=== PATIENT | male | born 1990 | race Caucasian/White ===

== ENCOUNTER 2020-01-04 04:04 | Emergency (ER) | payer SELFPAY ==
[~2020-01-04] VITALS: Ht 170.2 cm; Wt 69.8 kg
[2020-01-04 04:17] VITALS: BP 129/88
--- NOTE | 2020-01-04 04:17 | PHYS DOC ---
General Adult EDM: Chief Complaint: HAND PROBLEM HPI: HPI: "..I was trying to move a Rototiller up into the back of a pickup... Yesterday... And I slipped and fell puncturing my right hand with a binding wire..." " I cleaned it up..but tonight it started hurting..and I don't remember my last tetanus..." Patient is a 29 year old male who presents with above hx and complaint of Rt palm pain at puncture site. Pt.received puncture during FOOSH type injury to Rt. palm. Injury at t 1900 hrs. yesterday. The patient has no Tinel sign. Site of puncture appears to be cleaned and has currently some antibiotic ointment at site. Distal neurovascular intact. Patient is right-hand dominant. Patient does not remember his last tetanus. No recent travel or specific ill contacts. Normally healthy. No history immunosuppression. Review of Systems: Review of Systems: Constitutional: Denies fever or chills Eyes: Denies change in visual acuity HENT: Denies nasal congestion or sore throat Respiratory: Denies cough or shortness of breath Cardiovascular: Denies chest pain or edema GI: Denies abdominal pain, nausea, vomiting, bloody stools or diarrhea : Denies dysuria Musculoskeletal: Denies back pain or joint pain. Complains of right palm Integument: Denies rash Neurologic: Denies headache, focal weakness or sensory changes Endocrine: Denies polyuria or polydipsia Lymphatic: Denies swollen glands Psychiatric: Denies depression or anxiety Heart Score: Risk Factors: Risk Factors: DM, Current or recent (<one month) smoker, HTN, HLP, family history of CAD, obesity. Risk Scores: Score 0 - 3: 2.5% MACE over next 6 weeks - Discharge Home Score 4 - 6: 20.3% MACE over next 6 weeks - Admit for Clinical Observation Score 7 - 10: 72.7% MACE over next 6 weeks - Early Invasive Strategies Family History: Family History: Noncontributory Current Medications: Current Meds: See nursing for home meds Allergies: Allergies: No known drug allergies Physical Exam: PE: Constitutional: Well developed, well nourished, no acute distress, non-toxic appearance. [] HENT: Normocephalic, atraumatic, bilateral external ears normal, oropharynx moist, no oral exudates, nose normal. [] Eyes: PERRLA, EOMI, conjunctiva normal, no discharge. [] Neck: Normal range of motion, no tenderness, supple, no stridor. [] Cardiovascular:Heart rate regular rhythm, no murmur [] Lungs & Thorax: Bilateral breath sounds clear to auscultation [] Abdomen: Bowel sounds normal, soft, no tenderness, no masses, no pulsatile masses. [] Skin: Warm, dry, no erythema, no rash. [] Back: No tenderness, no CVA tenderness. [] Extremities: No tenderness, no cyanosis, no clubbing, ROM intact, no edema. [] Puncture wound right palm as per HPI Neurologic: Alert and oriented X 3, normal motor function, normal sensory function, no focal deficits noted. [] Psychologic: Affect normal, judgement normal, mood normal. [] EKG: EKG: [] Radiology/Procedures: Radiology/Procedures: [][place] [address] IMAGING REPORT Signed PATIENT: CORNEL WOODALL ACCOUNT: [id number] : 1990 LOCATION: ER AGE: 29 SEX: M EXAM STATUS: REG ER ORD. PHYSICIAN: MAGGY TINSLEY MD REASON: puncture on wire- eval foreign body, BASE OF 1ST METACARPAL PROCEDURE: HAND RIGHT 3V EXAM: PA, oblique and lateral views right knee DATE: 01/04/2020 4:17 AM INDICATION: Reason: puncture on wire- eval foreign body, BASE OF 1ST METACARPAL / Spl. Instructions: / History: COMPARISON: No Prior FINDINGS/ IMPRESSION: No acute fracture or dislocation. No definite retained radiopaque foreign body. Outside tissue swelling about the right hand. Electronically signed by: Liban Bravo MD (01/04/2020 4:55 AM) [facility] DICTATED AND SIGNED BY: LIBAN BRAVO MD DATE: 01/04/20 0455 CC: MAGGY TINSLEY MD; PCP,UNKNOWN ~ Course & Med Decision Making: Course & Med Decision Making Pertinent Labs and Imaging studies reviewed. (See chart for details) Patient is soak and in very warm salt water or Epsom salt water 4 times a day. Patient to then massage palm puncture site with Polysporin 4 times a day. Patient take Bactrim DS twice a day. Patient to take Tylenol or Profen for pain. Patient monitor closely for signs of infection. If no improvement of right palmar pain or signs of abscess formation may need surgical exploration. Patient return if any concerns. Impression: 1. Puncture Wound Rt. palm [] Dragon Disclaimer: Dragalirio Disclaimer: This electronic medical record was generated, in whole or in part, using a voice recognition dictation system. Departure Departure: Disposition: HOME/RESIDENCE PRIOR TO ADM Condition: STABLE Referrals: PCP,UNKNOWN (PCP) Scripts Sulfamethoxazole/Trimethoprim (BACTRIM DS TABLET) 1 Each Tablet 1 TAB PO BID for puncture wound for 10 Days, #20 TAB 0 Refills Prov: MAGGY TINSLEY MD 01/04/20 Laila Disclaimer This chart was dictated in whole or in part using Voice Recognition software in a busy, high-work load, and often noisy Emergency Department environment. It may contain unintended and wholly unrecognized errors or omissions. MAGGY TINSLEY MD January 04, 2020 04:17
[2020-01-04] MEDS ORDERED: cefTRIAXone SODIUM 1 GM VIAL ONE (04:23)
[2020-01-04] MEDS ORDERED: DIPH,PERTUSS(ACELL),TET VAC/PF 0.5 ML SYRINGE. VAX IM ONE ×2 (04:23→04:30)
[2020-01-04] MEDS ORDERED: KETOROLAC 60 MG/2 ML VIAL. IM ONE ×2 (04:23→04:30)
[2020-01-04] MEDS ORDERED: SULF1TAB24 PO (04:23)
[2020-01-04] MEDS ORDERED: SMZ/TMP 800/160MG TABLET. PO ONE ×2 (04:23→04:30)
[2020-01-04] MEDS ORDERED: cefTRIAXone IM 1 GM VIAL IM ONE (04:30)
--- NOTE | 2020-01-04 04:57 | RAD ---
EXAM: PA, oblique and lateral views right knee DATE: 01/04/2020 4:17 AM INDICATION: Reason: puncture on wire- eval foreign body, BASE OF 1ST METACARPAL / Spl. Instructions: / History: COMPARISON: No Prior FINDINGS/ IMPRESSION: No acute fracture or dislocation. No definite retained radiopaque foreign body. Outside tissue swelling about the right hand. Electronically signed by: Liban Bravo MD (01/04/2020 4:55 AM) [facility]
== END 2020-01-04 05:25 | disposition home or self-care (01) ==
LOC: ER 04:04
DX: S61.431A Puncture wound without foreign body of right hand, initial encounter (principal); W01.0XXA Fall on same level from slipping, tripping and stumbling without subsequent striking against object, initial encounter; Y93.89 Activity, other specified; Y92.89 Other specified places as the place of occurrence of the external cause; Y99.8 Other external cause status
CPT/HCPCS: 73130; 90471; 90715; 96372; 99284; J0696; J1885